=== PATIENT | male | born 1985 | race Caucasian/White ===

== ENCOUNTER 2016-09-17 20:00 | Emergency (ER) | payer BC ==
--- NOTE | 2016-09-17 20:07 | EDM.PDOC ---
ED HPI EYE COMPLAINT - General Chief Complaint: Eye Problems Stated Complaint: PAIN LT EYE/DEBRIS INSIDE Time Seen by Provider: 09/17/16 20:05 Source: Reports: Patient History Limitations: Reports: No limitations - History of Present Illness INITIAL COMMENTS - FREE TEXT/NARRATIVE: HISTORY AND PHYSICAL: History of present illness: [Patient comes to the emergency room for evaluation of his left eye. He was power washing the back of his truck while wearing his safety goggles when something flew into his left eye. He tried to wash it out at home but still has a sensation of something present in the eye. Denies blurred vision, double vision, and blindness in left eye. Works in the [employer]. He does not wear contacts or glasses and has no history of injury or problems to his left eye.] Review of systems: As per history of present illness and below otherwise all systems reviewed and negative. Past medical history: As per history of present illness and as reviewed below otherwise noncontributory. Surgical history: As per history of present illness and as reviewed below otherwise noncontributory. Social history: No reported history of drug or alcohol abuse. Family history: As per history of present illness and as reviewed below otherwise noncontributory. Physical exam: HEENT: Atraumatic, normocephalic. PERRLA. EOMI. Anicteric. See nurse's note for Snellen eye exam. No foreign bodies appreciated in left eye. Left eye is flushed using a copious amount of normal saline. Patient states that the foreign body sensation is gone after flushing w/ NS. Proparacaine ophthalmic drops are used for anesthesia, then fluorescein stain is completed. No foreign bodies, corneal abrasions or abnormalities are appreciated. Conjunctiva is mildly injected and inflamed. mucous membranes moist, throat clear. Lungs: Clear to auscultation, breath sounds equal bilaterally. Heart: S1S2, regular rate and rhythm. Genitourinary: Deferred. Rectal: Deferred. Extremities: Atraumatic, negative for cords or calf pain. Neurovascular unremarkable. Neuro: Awake, alert, oriented. Exam nonfocal. Impression: [Foreign body left eye] Plan: [Patient discharged from the ER with prescription for sulfacetamide ophthalmic solution. Followup with [facility] belt skiver if continued concerns or return to ER as needed. Patient in agreement with today's plan. All questions are answered and concerns are addressed.] Definitive disposition and diagnosis as appropriate pending reevaluation and review of above. - Related Data Allergies/ADRs: Allergies No Known Allergies Allergy (Verified 09/17/16 22:24) Home Meds: Ambulatory Orders Medication Instructions Recorded Confirmed . [No Known Home Meds] 01/02/15 09/17/16 Social & Family History - Tobacco Use Smoking Status *Q: Never Smoker ED ROS GENERAL - Review of Systems Review Of Systems: ROS reveals no pertinent complaints other than HPI. ED EXAM GENERAL W FULL EYE - Physical Exam Exam: See Below Course - Vital Signs Last Recorded V/S: Last Vital Signs Temp 97.8 F 09/17/16 20:55 Pulse 74 09/17/16 20:55 Resp 16 09/17/16 20:55 BP 118/70 09/17/16 20:55 Pulse Ox 99 09/17/16 20:55 - Orders/Labs/Meds Meds: Medications Discontinued Medications Generic Name Dose Route Start Last Admin Trade Name Freq PRN Reason Stop Dose Admin Proparacaine HCl Confirm 09/17/16 20:34 09/17/16 20:53 Proparacaine 0.5% Ophth Soln Administered 09/17/16 20:35 2 ml Dose Administration 15 ml .ROUTE .STK-MED ONE Departure - Departure Time of Disposition: 20:45 Disposition: Home, Self-Care 01 Condition: good Clinical Impression: Foreign body of left eye Qualifiers: Encounter type: initial encounter Qualified Code(s): T15.92XA - Foreign body on external eye, part unspecified, left eye, initial encounter Instructions: Eye Foreign Body, [id number] Referrals: PCP,None [Primary Care Provider] - Forms: ED Department Discharge Additional Instructions: The following information is given to patients seen in the emergency department who are being discharged to home. This information is to outline your options for follow-up care. We provide all patients seen in our emergency department with a follow-up referral. The need for follow-up, as well as the timing and circumstances, are variable depending upon the specifics of your emergency department visit. If you don't have a primary care physician on staff, we will provide you with a referral. We always advise you to contact your personal physician following an emergency department visit to inform them of the circumstance of the visit and for follow-up with them and/or the need for any referrals to a consulting specialist. The emergency department will also refer you to a specialist when appropriate. This referral assures that you have the opportunity for follow-up care with a specialist. All of these measure are taken in an effort to provide you with optimal care, which includes your follow-up. Under all circumstances we always encourage you to contact your private physician who remains a resource for coordinating your care. When calling for follow-up care, please make the office aware that this follow-up is from your recent emergency room visit. If for any reason you are refused follow-up, please contact the [facility] emergency department at and asked to speak to the emergency department charge nurse. [address] [address] Followup a local ophthalmology clinic or at the one listed above in 48-72 hours. Use sulfacetamide eyedrops 4 times daily to affected eye. Return to ER as needed and as discussed.
[2016-09-17] MEDS ORDERED: Proparacaine 0.5% Ophth Soln 15 ML Bottle ONE (20:34)
[2016-09-17 21:00] VITALS: BP 118/70
== END 2016-09-17 20:56 | disposition home or self-care (01) ==
LOC: MW.ED 20:00
DX: T15.92XA Foreign body on external eye, part unspecified, left eye, initial encounter (principal)
CPT/HCPCS: 99283

== ENCOUNTER 2021-08-13 10:11 | Emergency (ER) | payer BC ==
[2021-08-13] MEDS ORDERED: Ondansetron 4 MG/2 ML SDV IVPUSH ONE (10:28)
[2021-08-13] MEDS ORDERED: Sodium Chloride 0.9% 1,000 ML IV ONE (10:28)
[2021-08-13] MEDS ORDERED: Ketorolac 30 MG/ML SDV IVPUSH ONE (11:04)
[2021-08-13 11:11] LABS: CARBON DIOXIDE,CO2 24.1 mmol/L (21.0-32.0); POTASSIUM,K 4.2 mmol/L (3.5-5.1)
[2021-08-13 12:15] LABS: CORONAVIRUS COVID-19 NAA POSITIVE (NEGATIVE); INFLUENZA A NAA NEGATIVE (NEGATIVE); INFLUENZA B NAA NEGATIVE (NEGATIVE)
[2021-08-13 12:56] VITALS: BP 125/79; PULSE 80
== END 2021-08-13 12:57 | disposition home or self-care (01) ==
LOC: MW.ED 10:11
DX: U07.1 COVID-19 (principal); N17.9 Acute kidney failure, unspecified; E86.0 Dehydration; Z72.0 Tobacco use
CPT/HCPCS: 0240U; 36415; 80053; 85025; 96374; 96375; 99284; J1885; J2405; J7030